=== PATIENT | female | born 1995 | race Caucasian/White ===

== ENCOUNTER 2017-11-27 22:50 | Emergency (ER) | payer BC ==
[2017-11-27 23:37] LABS: Bilirubin Negative (Negative); Blood, Urine Trace (Negative); Clarity CLEAR (Clear); Glucose, Urine (Dipstick) Negative (Negative); Leukocyte Negative (Negative); Nitrite Negative (Negative); Protein, Urine (Dipstick) Negative (Neg-Trace); Specific Gravity, Urine 1.009 (1.002-1.036); Urobilinogen 0.2 mg/dL (0.2-1.0)
[2017-11-27 23:38] LABS: Bacteria/HPF 1+ HPF (None Seen); Hyaline Casts/LPF 0-3 HYALINE CAST LPF (0-3 Hyaline); Pathc Cast-AUWi Flag 0.14 (0-2.49); Pregnancy Test - Urine (BHCG) Negative (Negative); Pregu Control Background? CLEAR/WHITE (CLR/WHITE); Pregu Control Bar Appear? YES (CONTROL BAR); RBC/HPF 0-3 HPF (0-3); Specific Gravity 1.009 (1.002-1.036); WBC/HPF 0-3 HPF (0-3)
[2017-11-27] MEDS ORDERED: Ketorolac Tromethamine 30 MG/ML VIAL ONE (23:39)
[2017-11-27] MEDS ORDERED: diphenhydrAMINE 50 MG/ML VIAL ONE (23:39)
[2017-11-27] MEDS ORDERED: Metoclopramide HCl 10 MG/2 ML VIAL ONE (23:39)
== END 2017-11-28 01:24 | disposition home or self-care (01) ==
LOC: ERS 22:50
DX: G43.909 Migraine, unspecified, not intractable, without status migrainosus (principal); J45.909 Unspecified asthma, uncomplicated; F41.9 Anxiety disorder, unspecified
CPT/HCPCS: 62320; 81003; 81015; 81025; 96365; 96375; J1200; J1885; J2765

== ENCOUNTER 2018-04-12 20:37 | Emergency (ER) | payer BC ==
[2018-04-12] MEDS ORDERED: Metoclopramide HCl 10 MG/2 ML VIAL ONE (23:57)
[2018-04-12] MEDS ORDERED: diphenhydrAMINE 50 MG/ML VIAL ONE (23:58)
== END 2018-04-13 00:58 | disposition home or self-care (01) ==
LOC: ERS 20:37
DX: G43.909 Migraine, unspecified, not intractable, without status migrainosus (principal); J45.909 Unspecified asthma, uncomplicated; F41.9 Anxiety disorder, unspecified; Z79.899 Other long term (current) drug therapy
CPT/HCPCS: 96365; 96375; J1200; J2765

== ENCOUNTER 2018-06-30 10:16 | Outpatient (CLI) | payer BC ==
[~2018-06-30 10:16] MED LIST: Gadobenate Dimeglumine 529 MG/1 ML (20ML VIAL) ONE
--- NOTE | 2018-06-30 11:45 | MRI ---
MRI BRAIN WITHOUT CONTRAST: HISTORY: Chronic migraines. Elevated HGH. COMPARISON: None. TECHNIQUE: Brain MRI is performed with and without intravenous Gadolinium administration. Multisequential, mult iplanar imaging is performed. Images were obtained utilizing a pituitary protocol. FINDINGS: Appropriate T1 marrow signal intensity of the calvarium. Midline brain parenchymal structures are un remarkable. No brain parenchymal mass, mass effect, or midline shift. Brain volume is age appropriate. Cortical dubose-white matter differentiation is preserved. Ventricles and sulci are patent and symmetric. Central arterial flow voids are maintained. Absent restricted diffusion. Minimal mucosal disease of the visualized paranasal sinuses and mastoid air cells. No pathologic enhancement of the brain parenchyma. Visualized optic nerves and optic chiasm are unremarkable. Pituitary stalk is midline. There is con vexity along the superior margin of the pituitary gland which is acceptable in a patient of this age. There is no evidence of a macroadenoma. No definite microadenoma. IMPRESSION: Unremarkable pre- and postcontrast brain and pituitary gland MRI. No evidence of a micro- or macroad enoma. POS: OFF
== END 2018-06-30 10:17 | disposition home or self-care (01) ==
LOC: SCSMRI 10:16
DX: G43.709 Chronic migraine without aura, not intractable, without status migrainosus (principal)
CPT/HCPCS: 70553

== ENCOUNTER 2018-07-04 23:01 | Emergency (ER) | payer BC ==
[2018-07-04] MEDS ORDERED: Ketorolac Tromethamine 30 MG/ML VIAL ONE (23:43)
[2018-07-04] MEDS ORDERED: Metoclopramide HCl 10 MG/2 ML VIAL ONE (23:43)
== END 2018-07-05 00:30 | disposition home or self-care (01) ==
LOC: ERS 23:01
DX: G43.909 Migraine, unspecified, not intractable, without status migrainosus (principal); F41.9 Anxiety disorder, unspecified; F32.9 Major depressive disorder, single episode, unspecified; J45.909 Unspecified asthma, uncomplicated; Z79.899 Other long term (current) drug therapy; Z79.01 Long term (current) use of anticoagulants
CPT/HCPCS: 96365; 96375; J1885; J2765

== ENCOUNTER 2018-12-20 12:29 | Emergency (ER) | payer BC ==
[2018-12-20] MEDS ORDERED: Haloperidol Lactate 5 MG/ML VIAL ONE (13:51)
[2018-12-20] MEDS ORDERED: Acetaminophen 500 MG TAB ONE (13:51)
[2018-12-20] MEDS ORDERED: Ondansetron PF 4 MG/2 ML Vial ONE (13:51)
[2018-12-20] MEDS ORDERED: Dexamethasone 10 MG/ML VIAL ONE (13:51)
[2018-12-20] MEDS ORDERED: diphenhydrAMINE 50 MG/ML VIAL ONE (13:51)
[2018-12-20] MEDS ORDERED: Fentanyl 100 MCG/2 ML VIAL ONE (14:50)
== END 2018-12-20 15:08 | disposition home or self-care (01) ==
LOC: ERS 12:29
DX: G43.909 Migraine, unspecified, not intractable, without status migrainosus (principal); J45.909 Unspecified asthma, uncomplicated; F41.9 Anxiety disorder, unspecified; F32.9 Major depressive disorder, single episode, unspecified; Z79.899 Other long term (current) drug therapy; Z79.01 Long term (current) use of anticoagulants
CPT/HCPCS: 96361; 96372; 96374; 96375; J1100; J1200; J1630; J2405; J3010